=== PATIENT | female | born 1985 | race Caucasian/White ===

== ENCOUNTER → 2022-11-04 | Outpatient (CLI) | payer OTHER ==
[2022-11-06 12:08] LABS: COTININE Negative ng/mL (Cutoff=300)
== END | disposition home or self-care (01) ==
LOC: LAB 15:59 → LAB SHORT 15:59
PROVIDERS: Orthopaedic Surgery Orthopaedic Trauma
DX: M24.022 Loose body in left elbow (principal); T84.84XA Pain due to internal orthopedic prosthetic devices, implants and grafts, initial encounter

== ENCOUNTER → 2023-07-31 | Outpatient (CLI) | payer OTHER | END | disposition home or self-care (01) | LOC: LAB 12:00 → LAB SHORT 12:00 | DX: M25.522 Pain in left elbow (principal) | CPT/HCPCS: G0480 ==

== ENCOUNTER 2023-09-02 11:20 | Emergency (ER) | payer OTHER ==
[~2023-09-02] VITALS: Ht 167.6 cm; Wt 68.0 kg
[2023-09-02 12:15] VITALS: BP 132/81
== END 2023-09-02 16:25 | disposition left against medical advice (07) ==
LOC: ER 11:20
DX: R11.2 Nausea with vomiting, unspecified (principal); Z53.29 Procedure and treatment not carried out because of patient's decision for other reasons; R19.7 Diarrhea, unspecified; R32 Unspecified urinary incontinence
CPT/HCPCS: 99281